=== PATIENT | male | born 1965 | race Two or more races ===

== ENCOUNTER 2020-11-11 14:02 | Outpatient (CLI) | payer OTHER | END 2020-11-11 15:00 | disposition home or self-care (01) | LOC: NUCLEAR 14:02 | PROVIDERS: ATTEND Internal Medicine Cardiovascular Disease | DX: M81.0 Age-related osteoporosis without current pathological fracture (principal); E55.9 Vitamin D deficiency, unspecified ==

== ENCOUNTER → 2022-11-15 | Outpatient (CLI) | payer OTHER | END | disposition home or self-care (01) | LOC: NUCLEAR 07:00 | PROVIDERS: ATTEND Specialist | DX: I20.9 Angina pectoris, unspecified (principal); I11.9 Hypertensive heart disease without heart failure; E11.9 Type 2 diabetes mellitus without complications; E78.00 Pure hypercholesterolemia, unspecified ==

== ENCOUNTER 2022-11-17 06:46 | Outpatient (CLI) | payer OTHER | END 2022-11-17 06:55 | disposition home or self-care (01) | LOC: LAB 06:46 | PROVIDERS: ATTEND Urology | DX: R97.20 Elevated prostate specific antigen [PSA] (principal); Z01.812 Encounter for preprocedural laboratory examination; Z01.818 Encounter for other preprocedural examination ==

== ENCOUNTER 2022-11-17 07:09 | Outpatient (CLI) | payer OTHER | END 2022-11-17 07:24 | disposition home or self-care (01) | LOC: RAD 07:09 | PROVIDERS: ATTEND Urology | DX: Z01.818 Encounter for other preprocedural examination (principal); R97.20 Elevated prostate specific antigen [PSA] ==